=== PATIENT | male | born 1985 | race Hispanic/Latino ===

== ENCOUNTER 2024-11-14 11:17 | Outpatient (CLI) | payer OTHER | END 2024-11-14 11:18 | disposition home or self-care (01) | LOC: DTY/OP 11:17 | PROVIDERS: ATTEND Student in an Organized Health Care Education/Training Program | DX: Z01.89 Encounter for other specified special examinations (principal); Z68.32 Body mass index [BMI] 32.0-32.9, adult | CPT/HCPCS: 97802 ==